=== PATIENT | female | born 1970 | race Caucasian/White ===

== ENCOUNTER → 2021-02-06 | Outpatient (CLI) | payer BC, OTHER | LOC: MAMO 01-15 13:00 | DX: Z12.31 Encounter for screening mammogram for malignant neoplasm of breast (principal); N63.42 Unspecified lump in left breast, subareolar | CPT/HCPCS: 77063; 77067 ==

== ENCOUNTER → 2021-02-14 | Outpatient (CLI) | payer BC, OTHER | LOC: US 15:22 | DX: R92.8 Other abnormal and inconclusive findings on diagnostic imaging of breast (principal) | CPT/HCPCS: 76641-LT ==